=== PATIENT | male | born 1940 | race African-American/Black ===

== ENCOUNTER 2017-06-22 19:08 | Inpatient (IN) | payer MEDICARE, MEDICAID ==
[~2017-06-22] VITALS: Ht 170.2 cm; Wt 69.9 kg
[2017-06-22] MEDS ORDERED: ONDANSETRON HCL 4MG/2ML VIAL IV STA (19:21)
[2017-06-22] MEDS ORDERED: SODIUM CHLORIDE 0.9% 1,000 ML IV ONE ×2 (19:21→21:10)
[2017-06-22] MEDS ORDERED: TETANUS, DIPHTHERIA, PERTUSSIS VAC/PF 0.5ML (>7YR OLD) IM ONE (19:30)
[2017-06-22] MEDS ORDERED: LIDOCAINE HCL 1%/EPI 1:200,000 30 ML VIAL MC ONE (19:30)
[2017-06-22] MEDS ORDERED: BACITRACIN ZINC OINT UDPKT TOP ONE (19:30)
[2017-06-22 20:15] LABS: INR 1.1; PROTHROMBIN TIME 11.1 sec (9.4-11.6)
[2017-06-22 20:21] LABS: EOSINOPHILS % 6.1 % (0.0-5.0); HEMATOCRIT. 41.3 % (42.0-52.0); HEMOGLOBIN. 13.6 g/dL (14.0-18.0); LYMPHOCYTES % 43.9 % (20.0-50.0); MEAN CORPUSCULAR HEMOGLOBIN 34.7 pg (28.0-32.0); MEAN CORPUSCULAR VOLUME 105.4 fL (80.0-94.0); MEAN PLATELET VOLUME 8.7 fl (7.4-10.4); MONOCYTES % 9.1 % (2.0-8.0); NEUTROPHILS % 39.9 % (40.0-76.0); PLATELET 162 x1000/uL (130-400); RED BLOOD CELL COUNT 3.92 mill/uL (4.7-6.1); RED CELL DISTRIBUTION WIDTH 13.7 % (11.6-14.6)
[2017-06-22 20:30] LABS: AMMONIA < 25 uMol/L (<32)
[2017-06-22 20:32] LABS: CLARITY URINE CLEAR (CLEAR); COLOR URINE YELLOW (YELLOW); KETONES URINE NEGATIVE (NEGATIVE); LEUKOCYTE ESTERASE URINE NEGATIVE (NEGATIVE); NITRITE URINE NEGATIVE (NEGATIVE); OCCULT BLOOD URINE 1+ (NEGATIVE); PROTEIN URINE NEGATIVE (NEGATIVE); UROBILINOGEN URINE 0.2 E.U./dL (0.2-1.0)
[2017-06-22 20:34] LABS: CARBON DIOXIDE 27 mEq/L (21-32); CHLORIDE 105 mEq/L (98-107); CREATINE KINASE 710 IU/L (39-308); ETHANOL BLOOD 287 mg/dL; TROPONIN I < 0.02 ng/mL (0.00-0.04)
[2017-06-22 20:50] LABS: *AMPHETAMINES SCREEN URINE NEGATIVE (NEGATIVE); *BARBITURATES SCREEN URINE NEGATIVE (NEGATIVE); *BENZODIAZEPINES SCREEN URINE NEGATIVE (NEGATIVE); *COCAINE SCREEN URINE NEGATIVE (NEGATIVE); CANNABINOID URINE SCREEN NEGATIVE (NEGATIVE); METHADONE URINE SCREEN NEGATIVE (NEGATIVE); OPIATES URINE SCREEN NEGATIVE (NEGATIVE); PHENCYCLIDINE URINE SCREEN NEGATIVE (NEGATIVE)
[2017-06-22] MEDS ORDERED: SODIUM CHLORIDE 0.9% 1000ML BAG (SEPSIS BOLUS) IV SCH (22:45)
[2017-06-22] MEDS ORDERED: LEVOFLOXACIN 750MG PREMIX 150 ML IV SCH (22:45)
[2017-06-22 23:00] VITALS: BP 120/69
[2017-06-22 23:21] VITALS: BP 120/69
[2017-06-22] MEDS ORDERED: MELO-106 PO (23:27)
[2017-06-22] MEDS ORDERED: LISI-604 PO (23:27)
[2017-06-22] MEDS ORDERED: DOXA2TAB2 PO (23:27)
[2017-06-22] MEDS ORDERED: PANT40TA4 PO (23:27)
[2017-06-22] MEDS ORDERED: LORAZEPAM 2MG/ML CPJ IV PRN (23:30)
[2017-06-22] MEDS ORDERED: ONDANSETRON HCL 4MG/2ML VIAL IV PRN (23:30)
[2017-06-22] MEDS ORDERED: MORPHINE SULFATE 2 MG/ML CPJ (NOT FOR IM USE) IV PRN (23:30)
[2017-06-22] MEDS: DOXAZOSIN MESYLATE 2MG TABLET PO SCH (23:44)
[2017-06-22] MEDS ORDERED: LORAZEPAM 0.5MG TABLET PO PRN (23:45)
[2017-06-22] MEDS ORDERED: LORAZEPAM 1MG TABLET PO PRN (23:45)
[2017-06-23] MEDS: SODIUM CHLORIDE 0.9% 1,000 ML IV SCH ×2 (00:52→11:09)
[2017-06-23] MEDS: LEVOFLOXACIN 500MG PREMIX 100 ML IV SCH (01:34)
[2017-06-23] MEDS ORDERED: LORAZEPAM 2MG/ML CPJ IV PRN (03:30)
[2017-06-23 04:00] VITALS: BP 129/70
[2017-06-23 04:41] LABS: CLARITY URINE CLEAR (CLEAR); COLOR URINE YELLOW (YELLOW); KETONES URINE NEGATIVE (NEGATIVE); LEUKOCYTE ESTERASE URINE NEGATIVE (NEGATIVE); NITRITE URINE NEGATIVE (NEGATIVE); OCCULT BLOOD URINE NEGATIVE (NEGATIVE); PROTEIN URINE NEGATIVE (NEGATIVE); SPECIFIC GRAVITY URINE 1.011 (1.005-1.030); UROBILINOGEN URINE 0.2 E.U./dL (0.2-1.0)
[2017-06-23] MEDS: PANTOPRAZOLE 40MG DR TABLET PO SCH (06:50)
[2017-06-23 08:00] VITALS: BP 127/77
[2017-06-23] MEDS: LISINOPRIL 20MG TABLET PO SCH (09:03)
[2017-06-23] MEDS: FOLIC ACID 1MG TABLET PO SCH (09:03)
[2017-06-23] MEDS: MELOXICAM 7.5MG TABLET PO SCH (09:03)
[2017-06-23] MEDS: ENOXAPARIN 40MG/0.4ML SYR SUBCUT SCH (09:03)
[2017-06-23] MEDS: THIAMINE HCL 100MG TABLET PO SCH (11:08)
[2017-06-23] MEDS: MULTIVITAMINS,THER W-MINERALS TABLET PO SCH (11:08)
[2017-06-23 12:00] VITALS: BP 101/64
[2017-06-23 16:00] VITALS: BP 108/66
[2017-06-23 18:02] LABS: TROPONIN I < 0.02 ng/mL (0.00-0.04)
[2017-06-23 20:00] VITALS: BP 91/51
[2017-06-23] MEDS: DOXAZOSIN MESYLATE 2MG TABLET PO SCH (21:00)
[2017-06-24] VITALS: BP 105/60
[2017-06-24] MEDS: LEVOFLOXACIN 500MG PREMIX 100 ML IV SCH (01:57)
[2017-06-24 04:00] VITALS: BP 100/70
[2017-06-24 06:27] LABS: CHLORIDE 108 mEq/L (98-107)
[2017-06-24 06:29] LABS: BASOPHILS % 0.9 % (0.0-2.0); EOSINOPHILS % 6.2 % (0.0-5.0); HEMOGLOBIN. 11.9 g/dL (14.0-18.0); LYMPHOCYTES % 30.8 % (20.0-50.0); MEAN CORPUSCULAR HEMOGLOBIN 34.9 pg (28.0-32.0); MEAN CORPUSCULAR VOLUME 102.5 fL (80.0-94.0); MEAN PLATELET VOLUME 8.6 fl (7.4-10.4); MONOCYTES % 9.1 % (2.0-8.0); PLATELET 157 x1000/uL (130-400); RED BLOOD CELL COUNT 3.42 mill/uL (4.7-6.1); RED CELL DISTRIBUTION WIDTH 13.4 % (11.6-14.6)
[2017-06-24] MEDS: PANTOPRAZOLE 40MG DR TABLET PO SCH (06:31)
[2017-06-24 07:03] LABS: CARBON DIOXIDE 20 mEq/L (21-32); PHOSPHORUS 2.5 mg/dL (2.5-4.9)
[2017-06-24] MEDS: MULTIVITAMINS,THER W-MINERALS TABLET PO SCH (09:24)
[2017-06-24] MEDS: FOLIC ACID 1MG TABLET PO SCH (09:25)
[2017-06-24] MEDS: MELOXICAM 7.5MG TABLET PO SCH (09:25)
[2017-06-24] MEDS: THIAMINE HCL 100MG TABLET PO SCH (09:25)
[2017-06-24] MEDS: LISINOPRIL 20MG TABLET PO SCH (09:25)
[2017-06-24] MEDS: ENOXAPARIN 40MG/0.4ML SYR SUBCUT SCH (09:28)
[2017-06-24] MEDS: SODIUM CHLORIDE 0.9% 1,000 ML IV SCH ×2 (11:40→21:09)
[2017-06-24 12:00] VITALS: BP 136/71
[2017-06-24 16:00] VITALS: BP 116/63
[2017-06-24 20:17] VITALS: BP 139/80
[2017-06-24] MEDS: DOXAZOSIN MESYLATE 2MG TABLET PO SCH (21:08)
[2017-06-24 23:48] VITALS: BP 101/58
[2017-06-25] MEDS: LEVOFLOXACIN 500MG PREMIX 100 ML IV SCH (02:18)
[2017-06-25] MEDS: HYDROCODONE/ACETAMINOPHEN 5/325MG TABLET PO PRN ×2 (03:31→21:43)
[2017-06-25 04:08] VITALS: BP 113/47
[2017-06-25] MEDS: OMEPRAZOLE 20MG CAPSULE EXTENDED RELEASE PO SCH (06:32)
[2017-06-25 07:55] VITALS: BP 129/74
[2017-06-25] MEDS: SODIUM CHLORIDE 0.9% 1,000 ML IV SCH ×2 (08:53→21:43)
[2017-06-25] MEDS: MELOXICAM 7.5MG TABLET PO SCH (08:55)
[2017-06-25] MEDS: LISINOPRIL 20MG TABLET PO SCH (08:55)
[2017-06-25] MEDS: ENOXAPARIN 40MG/0.4ML SYR SUBCUT SCH (08:55)
[2017-06-25] MEDS: THIAMINE HCL 100MG TABLET PO SCH (08:55)
[2017-06-25] MEDS: MULTIVITAMINS,THER W-MINERALS TABLET PO SCH (08:55)
[2017-06-25] MEDS: FOLIC ACID 1MG TABLET PO SCH (08:55)
[2017-06-25 11:58] VITALS: BP 137/65
[2017-06-25 15:47] VITALS: BP 122/70
[2017-06-25 19:59] VITALS: BP 115/70
[2017-06-25] MEDS: DOXAZOSIN MESYLATE 2MG TABLET PO SCH (21:41)
[2017-06-25] MEDS: LEVOFLOXACIN 500MG TABLET PO SCH (21:41)
[2017-06-26 00:19] VITALS: BP 114/58
[2017-06-26 04:31] VITALS: BP 120/70
[2017-06-26] MEDS: OMEPRAZOLE 20MG CAPSULE EXTENDED RELEASE PO SCH (06:21)
[2017-06-26 06:50] LABS: CARBON DIOXIDE 26 mEq/L (21-32); CHLORIDE 102 mEq/L (98-107); PHOSPHORUS 2.5 mg/dL (2.5-4.9)
[2017-06-26 08:02] LABS: BASOPHILS % 1.3 % (0.0-2.0); EOSINOPHILS % 2.1 % (0.0-5.0); HEMATOCRIT. 31.4 % (42.0-52.0); HEMOGLOBIN. 10.9 g/dL (14.0-18.0); MEAN CORPUSCULAR VOLUME 101.2 fL (80.0-94.0); MEAN PLATELET VOLUME 8.7 fl (7.4-10.4); MONOCYTES % 9.5 % (2.0-8.0); NEUTROPHILS % 76.1 % (40.0-76.0); PLATELET 138 x1000/uL (130-400); RED BLOOD CELL COUNT 3.11 mill/uL (4.7-6.1)
[2017-06-26 08:05] VITALS: BP 125/65
[2017-06-26] MEDS: MULTIVITAMINS,THER W-MINERALS TABLET PO SCH (08:58)
[2017-06-26] MEDS: MELOXICAM 7.5MG TABLET PO SCH (08:58)
[2017-06-26] MEDS: LISINOPRIL 20MG TABLET PO SCH (08:58)
[2017-06-26] MEDS: THIAMINE HCL 100MG TABLET PO SCH (08:58)
[2017-06-26] MEDS: FOLIC ACID 1MG TABLET PO SCH (08:58)
[2017-06-26] MEDS: ENOXAPARIN 40MG/0.4ML SYR SUBCUT SCH (08:58)
[2017-06-26] MEDS ORDERED: ACETAMINOPHEN 325MG TABLET PO PRN (09:15)
[2017-06-26] MEDS ORDERED: MAGNESIUM 2 G PREMIX 50 ML IV SCH (10:30)
[2017-06-26 12:12] VITALS: BP 130/69
[2017-06-26] MEDS: HYDROCODONE/ACETAMINOPHEN 5/325MG TABLET PO PRN (13:00)
[2017-06-26 15:45] VITALS: BP 98/62
[2017-06-26] MEDS: MAGNESIUM OXIDE 400MG TABLET PO SCH (17:55)
[2017-06-26 20:00] VITALS: BP 130/72
[2017-06-26] MEDS: LEVOFLOXACIN 500MG TABLET PO SCH (21:08)
[2017-06-26] MEDS: DOXAZOSIN MESYLATE 2MG TABLET PO SCH (21:09)
[2017-06-27] VITALS: BP 138/76
[2017-06-27 04:00] VITALS: BP 121/70
[2017-06-27] MEDS: OMEPRAZOLE 20MG CAPSULE EXTENDED RELEASE PO SCH (06:53)
[2017-06-27 08:00] VITALS: BP 108/68
[2017-06-27] MEDS: THIAMINE HCL 100MG TABLET PO SCH (08:36)
[2017-06-27] MEDS: MULTIVITAMINS,THER W-MINERALS TABLET PO SCH (08:36)
[2017-06-27] MEDS: MELOXICAM 7.5MG TABLET PO SCH (08:36)
[2017-06-27] MEDS: MAGNESIUM OXIDE 400MG TABLET PO SCH (08:37)
[2017-06-27] MEDS: FOLIC ACID 1MG TABLET PO SCH (08:37)
[2017-06-27] MEDS: LISINOPRIL 20MG TABLET PO SCH (08:37)
[2017-06-27] MEDS: ENOXAPARIN 40MG/0.4ML SYR SUBCUT SCH (08:38)
[2017-06-27 12:22] VITALS: BP 113/71
[2017-06-27 13:14] VITALS: BP 114/70
[2017-06-27 16:00] VITALS: BP 100/60
== END 2017-06-27 17:32 | DRG 896 ==
LOC: ER 19:14 → 6WST 20:24 → ENRESERV 21:45
PROVIDERS: ADMIT Internal Medicine Nephrology; ATTEND Internal Medicine Nephrology
DX: F10.129 Alcohol abuse with intoxication, unspecified (principal); G92 Toxic encephalopathy; E43 Unspecified severe protein-calorie malnutrition; E87.2 Acidosis; S00.93XA Contusion of unspecified part of head, initial encounter; D64.9 Anemia, unspecified; W18.39XA Other fall on same level, initial encounter; E61.2 Magnesium deficiency; I10 Essential (primary) hypertension; Z82.49 Family history of ischemic heart disease and other diseases of the circulatory system; N40.0 Benign prostatic hyperplasia without lower urinary tract symptoms; Y93.89 Activity, other specified; Y92.89 Other specified places as the place of occurrence of the external cause; Y99.8 Other external cause status; Z68.24 Body mass index [BMI] 24.0-24.9, adult
CPT/HCPCS: 12002; 36415; 70450; 71010; 80048; 80053; 80305; 80307; 80329; 81001; 81003; 82140; 82550; 83605; 83690; 83735; 83880; 84100; 84443; 84484; 85025; 85610; 86850; 86900; 87040; 87086; 90471; 90715; 93005; 96361; 96374; 96375; 97110; 97112; 97116; 97162; 99285; G0482; J1650; J1956; J2270; J2405; J3475; J7030